=== PATIENT | female | born 1990 | race Caucasian/White ===

== ENCOUNTER 2024-07-26 03:55 | Emergency (ER) | payer MEDICAID, OTHER ==
[~2024-07-26] VITALS: Ht 170.2 cm; Wt 106.0 kg
--- NOTE | 2024-07-26 04:21 | ED.PDOC ---
GI ASSESSMENT HPI Comments 33-year-old female who came ER due to abdominal pain. Patient states about 4:00 p.m. yesterday, she bent over, and she developed sudden onset sharp, intermittent, right inguinal pain, nonradiating, associated with nausea. Denies any vomiting or urinary symptoms. 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: Denies all [employer]AT [employer]INE MECH[employer]IC Hx Family History Family History: Reviewed,noncontributory to illness Social History Smoker: Non-Smoker Alcohol: Denies ETOH Use Drugs: Denies Drug Use Lives In: Home Constitutional: denies: chills, diaphoresis, fatigue, fever, malaise, sweats, weakness, others EENTM: denies: blurred vision, double vision, ear bleeding, ear discharge, ear drainage, ear pain, ear ringing, eye pain, eye redness, hearing loss, mouth pain, mouth swelling, nasal discharge, nose bleeding, nose congestion, nose pain, photophobia, tearing, throat pain, throat swelling, voice changes, others Respiratory: denies: cough, hemoptysis, orthopnea, SOB at rest, shortness of breath, SOB with excertion, stridor, wheezing, others Cardiovascular: denies: chest pain, dizzy spells, diaphoresis, Dyspnea on exertion, edema, irregular heart beat, left arm pain, lightheadedness, palpitat ions, PND, syncope, others Gastrointestinal: reports: abdominal pain, nausea; denies: abdomen distended, blood streaked bowels, constipated, diarrhea, dysphagia, difficulty swallowing, hematemesis, melena, poor appetite, poor fluid intake, rectal bleeding, rectal pain, vomiting, others Genitourinary: denies: abnormal vagina bleeding, burning, dyspareunia, dysuria, flank pain, frequency, hematuria, incontinence, pain, , vagina discharge, urgency, others Neurological: denies: dizziness, fainting, headache, left sided numbness, left sided weakness, numbness, paresthesia, pre-existing deficit, right sided numbness, right sided weakness, seizure, speech problems, tingling, tremors, weakness, others Musculoskeletal: denies: back pain, gout, joint pain, joint swelling, muscle pain, muscle stiffness, neck pain, others Integumetry: denies: bruises, change in color, change in hair/nails, dryness, laceration, lesions, lumps, rash, wounds, others Allergic/Immunocompromised: denies: Difficulty Healing, Frequent Infections, Hives, Itching, others Hematologic/Lymphatic: denies: anemia, blood clots, easy bleeding, easy bruising, swollen glands, others Endocrine: denies: excessive hunger, excessive sweating, excessive thirst, excessive urination, flushing, intolerance to cold, intolerance to heat, unexplained weight gain, unexplained weight loss, others Psychiatric: denies: anxiety, bipolar disorder, depression, hopeless, panic disorder, schizophrenia, sleepless, suicidal, others Physical Exam General Appearance: Moderate Distress, Normal HEENT: Normal ENT Inspection, Pharynx Normal, TMs Normal Neck: Full Range of Motion, Non-Tender, Normal, Normal Inspection Respiratory: Chest Non-Tender, Lungs Clear, No Accessory Muscle Use, No Respiratory Distress, Normal Breath Sounds Cardiovascular: No Edema, No JVD, No Murmur, No Gallop, Normal Peripheral Pulses, Regular Rate/Rhythm Breast Exam: Deferred Gastrointestinal: LLQ, No Organomegaly, No Pulsatile Mass, Normal Bowel Sounds, RLQ, Soft, Tenderness Genitalia: Deferred Pelvic: Deferred Rectal: Deferred Extremities: No calf tenderness, Normal capillary refill, Normal inspection, Normal range of motion, Non-tender, No pedal edema Musculoskeletal : Apperance: Normal Neurologic: Alert, didactic program in dietetics director II-XII nml as Tested, No Motor Deficits, Normal Affect, Normal Mood, No Sensory Deficits Cerebellar Function: Normal Reflexes: Normal Skin: Dry, Normal Color, Warm Lymphatic: No Adenopathy Was a procedure done? Was a procedure done?: No GI differential Dx Differential Diagnosis: Appendicitis, Complete , Incomplete , Inevitable , Missed , Threatened , Abruptio placentae, Bowel Obstruction, Cholangitis, Cholecystitis, Constipation, Diverticular disease, Dysmenorrhea, Ectopic , Esophageal rupture, Gastritis/PUD, Gastroenteritis, Hernia, Hepatitis, Inflammatory BD, Ischemic Bowel, Ovarian cyst/torsion, Pancreatitis, PID, Porphyria, Trauma intraabdominal, Urinary Obstruction, UTI, Urolithiasis, Dehydration, Diabetes/ DKA, Electrolyte Imbalance, Food Poisoning, , Bacterial, Parasitic, Viral, Impaction, Kidney Stone X-Ray, Labs, Meds, VS Vital Signs Date Time Temp Pulse Resp B/P (MAP) Pulse Ox O2 Delivery O2 Flow Rate FiO2 07/26/24 06:40 122 18 147/98 (114) 97 07/26/24 05:23 120 20 145/97 (113) 96 07/26/24 05:00 105 17 140/95 07/26/24 04:45 120 18 153/99 07/26/24 04:45 98.1 120 18 153/99 (117) 96 98.1 07/26/24 04:40 120 18 96 Room Air* 0 21 07/26/24 04:07 98.1 147 24 147/93 (111) 98 Lab Test 07/26/24 04:10 07/26/24 04:00 Range/Units White Blood Count 16.9 H 4.4-10.8 10^3/uL Red Blood Count 4.78 4.0-5.20 10^6/uL Hemoglobin 15.0 12.2-16.2 g/dL Hematocrit 44.6 36.0-46.0 % Mean Corpuscular Volume 93.3 80.0-100.0 fL Mean Corpuscular Hemoglobin 31.3 28.0-32.0 pg Mean Corpuscular Hemoglobin Concent 33.5 32.0-36.0 g/dL Red Cell Distribution Width 13.1 11.8-14.3 % Platelet Count 264 140-450 10^3/uL Mean Platelet Volume 9.1 6.9-10.8 fL Neutrophils (%) (Auto) 62.7 37.0-80.0 % Lymphocytes (%) (Auto) 29.8 10.0-50.0 % Monocytes (%) (Auto) 5.5 0.0-12.0 % Eosinophils (%) (Auto) 0.9 0.0-7.0 % Basophils (%) (Auto) 1.1 0.0-2.0 % Neutrophils # (Auto) 10.6 H 1.6-8.6 10 ^3/uL Lymphocytes # (Auto) 5.0 0.4-5.4 10 ^3/uL Monocytes # (Auto) 0.9 0-1.3 10 ^3/uL Eosinophils # (Auto) 0.2 0-0.8 10 ^3/uL Basophils # (Auto) 0.2 0-0.2 10 ^3/uL Nucleated Red Blood Cells 0.0 % Sodium Level 141 136-145 mmol/L Potassium Level 3.4 L 3.5-5.1 mmol/L Chloride Level 109 H 98-107 mmol/L Carbon Dioxide Level 22 20-31 mmol/L Anion Gap 10 5-15 Blood Urea Nitrogen 11 9-23 mg/dL Creatinine 0.77 0.550-1.02 mg/dL Glomerular Filtration Rate Calc 104 >90 mL/min BUN/Creatinine Ratio 14.3 10.0-20.0 Serum Glucose 109 H 74-106 mg/dL Calcium Level 9.8 8.7-10.4 mg/dL Total Bilirubin 0.7 0.2-1.0 mg/dL Aspartate Amino Transferase (AST) 25 13-40 U/L Alanine Aminotransferase (ALT) 63 H 7-40 U/L Alkaline Phosphatase 88 46-116 U/L Total Protein 7.9 5.7-8.2 g/dL Albumin 5.2 H 3.2-4.8 g/dL Beta HCG, Quantitative 0.0 L 1.5-4.2 mIU/mL Urine Color Light-yellow Yellow Urine Clarity Clear Clear Urine pH 5.5 5.0-9.0 Urine Specific [place] 1.023 1.001-1.035 Urine Protein Trace H Negative Urine Ketones 2+ H Negative Urine Blood 2+ H Negative /uL Urine Nitrite Negative Negative Urine Bilirubin Negative Negative Urine Urobilinogen Normal Negative mg/dL Urine Leukocyte Esterase Negative Negative /uL Urine RBC 4 0 - 4 /hpf Urine WBC 1 0 - 5 /hpf Urine Squamous Epithelial Cells Few <5 /hpf Urine Bacteria None seen None Seen /hpf Urine Glucose Normal Normal mg/dL Current Medications Medications (Trade) Dose Ordered Sig/[place] Route Start Time Stop Time Status Last Admin Ondansetron HCl (Zofran) 4 mg ONCE ONCE IV 07/26/24 04:15 07/26/24 04:16 DC 07/26/24 04:45 Sodium Chloride 1,000 ml @ 1,000 mls/hr Q1H ONCE IVB 07/26/24 04:15 07/26/24 05:14 DC 07/26/24 04:45 Morphine Sulfate 4 mg ONCE ONCE IV 07/26/24 04:15 07/26/24 04:16 DC 07/26/24 04:45 Time of 1ST Reevaluation: 04:18 Reevaluation 1ST: Unchanged Time of 2ND Reevaluation: 05:36 (awaiting CT results, WBC noted to be elevated) Reevaluation 2ND: Unchanged Patient Education/Counseling: Diagnosis, Treatment, Prognosis, Need For Follow Up Family Education/Counseling: No Family Present Change of Shift?: Yes Additional Information i, Dr Hernandez, assumed care of the pt at 6am. pt's labs and ct were reviewed. she has ovarian cysts on the ct. she also has leukocytosis of unknown significance. on re-exam, she has mild suprapubic tenderness. due to the leukocytosis, and that the ct, although a good test, does not absolutely rule out differntials such as early appy. i recommended that we admit her to continue to monitor, but pt has a safe home, with reliable family, and she appears to be a reliable pt. she elected to go home and return fo a 8-12 hours Departure 1 Departure Time of Disposition: 06:59 Impression: Primary Impression: Lower abdominal pain Additional Impression: Leukocytosis Qualified Codes: D72.829 - Elevated white blood cell count, unspecified Disposition: 01 HOME / SELF CARE / HOMELESS Condition: Good Additional Instructions: return for an 8-12 hours recheck if symptoms persists. return sooner for any concerns or worsening of condition e-Prescriptions Ibuprofen Micronized (MOTRIN TABLET) 600 Mg Tb 600 MG PO TID PRN, #40 TAB *Black box warning-NSAIDS can increase risk of KS & hypertension, GI irritation, ulceration, bleed, perferation. Do not use post cardiac surgery. Use short duration/lowest effective dose. Prov: CHALINO HERNANDEZ MD 07/26/24 Discharged With: Self Critical Care Note Critical Care Time?: No Stability Stability form required: No Heart Score Heart Score: Heart Score Response (Comments) Value History N/A 0 EKG N/A 0 Age N/A 0 Risk Factors N/A 0 Troponin N/A 0 Total 0 I personally scribed for CANELO FELIZ MD ([email or web address]) on 07/26/24 at 04:21. Electronically submitted by Glen Hernandez ([email or web address]). CANELO FELIZ MD Jul 26, 2024 04:21 CHALINO HERNANDEZ MD Jul 26, 2024 06:59
[2024-07-26 04:24] LABS: Urine Bacteria None Seen /hpf (None Seen)
[2024-07-26 04:26] LABS: Basophils # (auto) 0.2 10 ^3/uL (0-0.2); Basophils % (auto) 1.1 % (0.0-2.0); Eosinophils # (auto) 0.2 10 ^3/uL (0-0.8); Eosinophils % (auto) 0.9 % (0.0-7.0); Hematocrit 44.6 % (36.0-46.0); Lymphocytes % (auto) 29.8 % (10.0-50.0); Mean Corpuscular Hemoglobin 31.3 pg (28.0-32.0); Mean Corpuscular Hgb Conc. 33.5 g/dL (32.0-36.0); Mean Corpuscular Volume 93.3 fL (80.0-100.0); Monocytes # (auto) 0.9 10 ^3/uL (0-1.3); Monocytes % (auto) 5.5 % (0.0-12.0); Neutrophils # (auto) 10.6 10 ^3/uL (1.6-8.6); Neutrophils % (auto) 62.7 % (37.0-80.0); Platelet Count (auto) 264 10^3/uL (140-450); Red Blood Cells 4.78 10^6/uL (4.0-5.20); Red Cell Distribution Width 13.1 % (11.8-14.3); White Blood Cell 16.9 10^3/uL (4.4-10.8)
[2024-07-26 04:39] LABS: Urine Blood 2+ /uL (Negative); Urine Clarity Clear (Clear); Urine Color Light-Yellow (Yellow); Urine Protein, UAD TRACE (Negative); Urine Specific Gravity 1.023 (1.001-1.035); Urine Urobilinogen Normal (Negative); Urine WBC 1 /hpf (0 - 5); Urine pH 5.5 (5.0-9.0)
[2024-07-26 04:40] VITALS: PULSE 120; RESP 18; O2SAT 96
[2024-07-26 04:45] VITALS: TEMP 98.1
[2024-07-26] MEDS: ONDANSETRON HCL 4 MG/2 ML VIAL IV ONE (04:45)
[2024-07-26] MEDS: SODIUM CHLORIDE 0.9% 1,000 ML IVB ONE (04:45)
[2024-07-26] MEDS: MORPHINE SULFATE 4 MG/ML SYR/VIAL IV ONE (04:45)
[2024-07-26 04:52] LABS: Alanine Aminotransferase 63 U/L (7-40); Albumin 5.2 g/dL (3.2-4.8); Alkaline Phosphatase 88 U/L (46-116); Anion Gap 10 (5-15); Aspartate Aminotransferase 25 U/L (13-40); BUN/Creatinine Ratio 14.3 (10.0-20.0); Blood Urea Nitrogen 11 mg/dL (9-23); Calcium 9.8 mg/dL (8.7-10.4); Carbon Dioxide 22 mmol/L (20-31); Chloride 109 mmol/L (98-107); Glucose 109 mg/dL (74-106); Potassium 3.4 mmol/L (3.5-5.1); Sodium 141 mmol/L (136-145)
[2024-07-26 04:53] LABS: Bilirubin, Total 0.7 mg/dL (0.2-1.0); Total Protein 7.9 g/dL (5.7-8.2)
[2024-07-26] MEDS: IOHEXOL 300 MG/ML 100ML BOTTLE IJ ONE (05:37)
--- NOTE | 2024-07-26 06:14 | DVH ---
Exam: CT CT AB PEL WITH IV CON ONLY History: rlq pain Comparison Study: None available at time of dictation. Contrast: 100 cc Omnipaque 300 TECHNIQUE: A digital athletic scout image was obtained. During the uneventful, intravenous administration of c ontrast material, multislice data acquisition was obtained through the abdomen and pelvis. The data s et was subsequently reconstructed into axial images. Images were reviewed on a work s All CT scans at this medical facility are performed using dose modulation techniques as appropriate t o a performed exam including the following: Automated exposure control was utilized; adjustment of th e MA and/or KV according to patient size; and use of iterative reconstruction technique. tation using a combination of axial and multiplanar using a variety of window levels and settings. Radiation Dose Information: CT Dose: Dose-length product is 1575.7 mGy*cm FINDINGS: Imaged portions of the lung bases appear unremarkable. There is a small hiatal hernia. There is diffuse hepatic steatosis. The gallbladder, spleen, pancreas and adrenal glands appear unrem arkable. The kidneys enhance symmetrically. There is a 0.5 cm right renal cysts. No hydronephrosis. No evidence of bowel obstruction or focal bowel wall thickening. The appendix appears normal. The uterus is anteverted. There is a 5.6 x 2.4 cm multi-cystic lesion of the right adnexa. There is a tampon in the vaginal canal. No free fluid. No suspicious osseous lesion. IMPRESSION: 1. Multi-cystic right adnexal lesion, likely ovarian cysts. Pelvic ultrasound is recommended. 2. Diffuse hepatic steatosis 3. Small hiatal hernia. HS:Y
[2024-07-26 06:40] VITALS: BP 147/98; PULSE 122; RESP 18; O2SAT 97
[2024-07-26] MEDS ORDERED: IBU600T PO (06:59)
== END 2024-07-26 06:56 | disposition still patient (30) ==
LOC: ER 03:55
DX: R10.31 Right lower quadrant pain (principal); R10.2 Pelvic and perineal pain; D72.829 Elevated white blood cell count, unspecified
CPT/HCPCS: 36415; 74177; 80053; 81001; 84702; 85025; 96361; 96374; 96375; 99285; J2270; J2405; J7030; Q9967